=== PATIENT | female | born 1970 | race Caucasian/White ===

== ENCOUNTER 2018-11-28 09:44 | Emergency (ER) | payer MEDICAID ==
[~2018-11-28] VITALS: Ht 160 cm; Wt 74.8 kg
[2018-11-28 09:50] VITALS: BP_SYST 192
--- NOTE | 2018-11-28 09:50 | NUR ---
Placed in room 7 . Placed on teletypesetter monitor, blood pressure machine and pulse oximeter. To gown for exam. Side rails up. Report given to SUMANTH Gilmore.
--- NOTE | 2018-11-28 09:50 | NUR ---
Assumed care, SUMANTH Woody.
--- NOTE | 2018-11-28 09:52 | NUR ---
Patient arrived via POV, AAOx4, and ambulatory with steady gait. Patient c/c of chest pain/discomfort. Onset was yesterday and pain radiated across back. Patient had appointment at primary care physician today, they monitored her for 1 hour, blood pressure while in office was 180/117. Associated symptoms was heart pounding, hands/arms numb and tingling. Patient PMH of hypertension and foot surgery. Patient calm and cooperative, placed on monitor, EKG performed, and patient changed into gown. MD to follow up. Will continue to monitor.
--- NOTE | 2018-11-28 09:58 | NUR ---
ER at bedside examining patient.
[2018-11-28] MEDS ORDERED: ENALAPRILAT DIHYDRATE 1.25 MG/ML VIAL IVP ONE (10:00)
--- NOTE | 2018-11-28 10:16 | NUR ---
# 20 gauge angiocath placed to LAC. Use of asceptic technique. Opsite placed over site. Blood return noted. Blood for lab drawn from site. Flushed with 10 cc of normal saline. No evidence of infiltration noted. Patient tolerated well.
[2018-11-28] MEDS ORDERED: MORPHINE 4 MG/ML INJ. SYRINGE IVP ONE ×2 (10:30→23:30)
[2018-11-28] MEDS ORDERED: NITROGLYCERIN 1 INCH (GM) OINT. TP ONE ×2 (10:30→23:30)
[2018-11-28 10:33] LABS: BASOPHILS # (AUTO) 0.1 K/uL (0.0-0.2); BASOPHILS % (AUTO) 1.1 % (0.0-2.0); EOSINOPHILS # (AUTO) 0.2 K/uL (0.0-0.4); EOSINOPHILS % (AUTO) 2.4 % (0.0-4.0); HEMOGLOBIN 16.4 g/dL (12.0-16.0); LYMPHOCYTES # (AUTO) 2.8 K/uL (1.0-5.5); LYMPHOCYTES % (AUTO) 32.3 % (20.5-51.5); MEAN CORPUSCULAR HEMOGLOBIN 33 pg (27-31); MEAN CORPUSCULAR HGB CONC 34 % (32-36); MEAN CORPUSCULAR VOLUME 96 fL (79.0-98.0); MONOCYTES # (AUTO) 0.5 K/uL (0.0-1.0); MONOCYTES % (AUTO) 5.9 % (1.7-9.3); NEUTROPHILS % (AUTO) 58.3 % (40.0-70.0); PLATELET COUNT (AUTO) 340 K/uL (130-430); RED BLOOD CELL COUNT(AUTO) 5.01 MIL/uL (4.2-6.2); RED CELL DISTRIBUTION WIDTH 13.9 % (9.0-15.0); WHITE BLOOD COUNT (AUTO) 8.6 K/uL (4.8-10.8)
[2018-11-28 10:49] LABS: ALBUMIN 4.3 g/dL (3.4-4.8); CALCIUM 10.4 mg/dL (8.4-11.0); CREATININE 0.8 mg/dL (0.55-1.30); POTASSIUM 4.1 mmol/L (3.5-5.1); TOTAL BILIRUBIN 0.6 mg/dL (0.0-1.0)
[2018-11-28 10:50] LABS: INR 0.9 (0.8-1.2); PROTHROMBIN TIME 9.2 SECS (9.5-12.5)
--- NOTE | 2018-11-28 11:35 | NUR ---
Patient given written and verbal discharge instructions and verbalizes understanding. ER MD discussed with patient the results and treatment provided. Patient in stable condition. ID arm band removed. IV catheter removed intact and dressing applied, no active bleeding. Rx of Lisinopril/HCTZ given. Patient educated on pain management and to follow up with PMD. Pain Scale 3/10. Opportunity for questions provided and answered. Medication side effect fact sheet provided.
[2018-11-28 11:40] VITALS: BP_SYST 127
== END 2018-11-28 11:35 | disposition home or self-care (01) ==
LOC: SED 09:44
DX: I10 Essential (primary) hypertension (principal); F17.200 Nicotine dependence, unspecified, uncomplicated; Z71.6 Tobacco abuse counseling
CPT/HCPCS: 36415; 71045; 80053; 83880; 84484; 85025; 85379; 85610; 85730; 96374; 96375; 99284; J2270